=== PATIENT | male | born 1965 | race African-American/Black ===

== ENCOUNTER 2016-09-02 08:54 | Emergency (ER) | payer SELFPAY ==
[~2016-09-02] VITALS: Ht 175.3 cm; Wt 70.0 kg
[~2016-09-02 08:54] MED LIST: MOTRIN; TRAM50TA3 PO
[2016-09-02] MEDS ORDERED: SODIUM CHLORIDE 0.9% 1,000 ML IV ONE (09:26)
[2016-09-02] MEDS ORDERED: KETOROLAC 30MG/ML VIAL IV ONE (09:30)
[2016-09-02 11:30] VITALS: BP 135/82
[2016-09-02] MEDS ORDERED: HYDROCODONE/ACETAMINOPHEN 5/325MG TABLET PO ONE (12:00)
== END 2016-09-02 13:28 | disposition home or self-care (01) ==
LOC: ER 09:06
DX: R07.89 Other chest pain (principal); J44.9 Chronic obstructive pulmonary disease, unspecified; M25.511 Pain in right shoulder
CPT/HCPCS: 71020; 73030; 96361; 96374; 99284; J1885; J7030